=== PATIENT | male | born 1940 | race Caucasian/White ===

== ENCOUNTER → 2021-08-05 12:31 | Outpatient (BNVA) | payer MEDICARE, SELFPAY | PROVIDERS: Visit Provider Hospitalist | DX: J41.1 Mucopurulent chronic bronchitis (principal); J40 Bronchitis, not specified as acute or chronic; R91.8 Other nonspecific abnormal finding of lung field | CPT/HCPCS: 99202 ==

== ENCOUNTER 2021-08-19 13:29 | Outpatient (REF) | payer MEDICARE, SELFPAY ==
--- NOTE | 2021-08-19 17:36 | PFT_ITS ---
INDICATION: Dyspnea. SPIROMETRY: FEV1 to FVC 68% with an FEV1 of 1.52 L, which is 69% predicted and an FVC of 2.23 L, which is 70% predicted. No significant response to bronchodilators noted. Maximum voluntary ventilation 55% predicted. LUNG VOLUMES: Total lung capacity 90% predicted with a residual volume 139% predicted and an expiratory reserve volume of 22% predicted. DIFFUSION CAPACITY: DLCO 49% predicted. COMPARISONS: None. INTERPRETATION: There is an obstructive ventilatory defect consistent with moderate COPD. No significant response to bronchodilators noted. The patient also has a moderate decrease in maximum voluntary ventilation secondary to deconditioning and also worsening dynamic inspiratory capacity. Lung volumes show significant air trapping due to the COPD, and the patient does have [id number] diffusion impairment, likely secondary to emphysema and all the parenchymal lung conditions or pulmonary vascular conditions should also be considered. Also need to correct for hemoglobin. Clinical correlation warranted. MD JIMMY Neely/RAMSES / [id number]
== END 2021-08-19 13:30 | disposition home or self-care (01) ==
LOC: HO.RESP 13:29
PROVIDERS: Visit Provider Hospitalist
DX: R91.8 Other nonspecific abnormal finding of lung field (principal)
CPT/HCPCS: 94060; 94727; 94729

== ENCOUNTER → 2021-09-21 14:05 | Outpatient (BNVA) | payer MEDICARE, SELFPAY | PROVIDERS: Visit Provider Hospitalist | DX: J41.1 Mucopurulent chronic bronchitis (principal); R91.8 Other nonspecific abnormal finding of lung field; J40 Bronchitis, not specified as acute or chronic | CPT/HCPCS: 99212 ==

== ENCOUNTER → 2022-01-18 09:57 | Outpatient (BNVA) | payer MEDICARE, SELFPAY | PROVIDERS: Visit Provider Hospitalist | DX: J41.1 Mucopurulent chronic bronchitis (principal); R91.8 Other nonspecific abnormal finding of lung field; M54.50 Low back pain, unspecified; N18.6 End stage renal disease; I25.10 Atherosclerotic heart disease of native coronary artery without angina pectoris; Z87.891 Personal history of nicotine dependence; Z95.1 Presence of aortocoronary bypass graft; Z99.2 Dependence on renal dialysis | CPT/HCPCS: 99212 ==